=== PATIENT | female | born 1960 | race American Indian/Alaskan Native ===

== ENCOUNTER 2021-08-18 23:13 | Emergency (ER) | payer SELFPAY ==
[2021-08-19] MEDS ORDERED: IPRATROPIUM 0.02% NEBU 2.5 ML IH ONE (01:24)
[2021-08-19] MEDS ORDERED: ALBUTEROL 2.5 MG/3 ML NEBU IH ONE (01:24)
--- NOTE | 2021-08-19 02:03 | XRay Report ---
XR chest 1V ap INDICATION / CLINICAL INFORMATION: Dyspnea. COMPARISON: 08/14/2012 FINDINGS: SUPPORT DEVICES: None. HEART /PULMONARY VASCULATURE: Heart is enlarged. Pulmonary vasculature is congested. LUNGS / PLEURA: Moderate diffuse increased interstitial prominence, may reflect edema. There is no fo hannah airspace consolidation. No sizable pleural effusion. No pneumothorax. ADDITIONAL FINDINGS: No significant additional findings. IMPRESSION: Moderate diffuse increased interstitial markings, may reflect pulmonary edema or pneumonia. Signer Name: Butch Anderson MD Signed: 08/19/2021 1:58 AM Workstation Name: [id number]
[2021-08-19 02:55] LABS: Basophils % (Auto) 0.4 % (0.0-1.8); Eosinophils % (Auto) 0.1 % (0.0-4.3); Hematocrit 41.2 % (30.3-42.9); Hemoglobin 13.4 gm/dl (10.1-14.3); Lymphocytes # (Auto) 0.7 K/mm3 (1.2-5.4); Lymphocytes % (Auto) 10.7 % (13.4-35.0); Mean Corpuscular HGB Conc 33 % (30-34); Mean Corpuscular Volume 89 fl (79-97); Monocytes # (Auto) 0.4 K/mm3 (0.0-0.8); Monocytes % (Auto) 5.8 % (0.0-7.3); Platelet Count 187 K/mm3 (140-440); Red Blood Count 4.65 M/mm3 (3.65-5.03); Red Cell Distribution Width 14.2 % (13.2-15.2)
[2021-08-19 03:07] LABS: Alanine Aminotransferase 25 units/L (7-56); Albumin 3.9 g/dL (3.9-5); BUN/Creatinine Ratio 14; Blood Urea Nitrogen 14 mg/dL (7-17); Calcium 9.4 mg/dL (8.4-10.2); Hemolysis Index 10
[2021-08-19 03:09] LABS: Creatine Kinase MB 7.6 ng/mL (0.0-4.0)
[2021-08-19] MEDS ORDERED: FUROSEMIDE 40 MG/4 ML INJ IV ONE (03:20)
--- NOTE | 2021-08-19 03:59 | Emergency Department Report ---
ED General Adult HPI - General Chief complaint: Dyspnea/Respdistress Stated complaint: DIFF BREATHING Time Seen by Provider: 08/19/21 01:13 Source: EMS Mode of arrival: Stretcher Limitations: No Limitations - History of Present Illness Initial comments: sob and gloria , pt has HTN , no chest pain , no fever -: Gradual, days(s) Location: chest Radiation: non-radiation Improves with: none Worsens with: none Treatments Prior to Arrival: none - Related Data Home Medications Medication Instructions Recorded Confirmed Last Taken Lisinopril/Hydrochlorothiazide 12/23/13 12/23/13 Unknown [Zestoretic 10-12.5 mg] Previous Rx's Medication Instructions Recorded Last Taken Type Prednisone [Prednisone 10 mg 10 mg PO .TAPER #1 tab.ds.pk 12/23/13 Unknown Rx (6-Day Pack, 21 Tabs)] Promethazine Dm (Nf) [Phenergan Dm 5 ml PO Q6H PRN #120 ml 12/23/13 Unknown Rx 6.25/15 mg 5 ml] Sulfamethoxazole/Trimethoprim 1 each PO Q12H #14 tablet 12/23/13 Unknown Rx [Bactrim Ds] Permethrin 5% [Acticin 5% CREAM] 1 applicatio TP ONCE #1 tube 01/06/14 Unknown Rx cephALEXin [Keflex] 500 mg PO Q6H #28 capsule 01/06/14 Unknown Rx hydrOXYzine HCL [Atarax] 25 mg PO Q6HR PRN #30 tablet 01/10/14 Unknown Rx Furosemide [Lasix] 20 mg PO QDAY #30 tablet 08/19/21 Unknown Rx Allergies Allergy/AdvReac Type Severity Reaction Status Date / Time No Known Allergies Allergy Verified 08/18/21 23:20 ED Review of Systems ROS: Stated complaint: DIFF BREATHING Other details as noted in HPI Constitutional: denies: chills, fever Eyes: denies: eye pain, eye discharge, vision change ENT: denies: ear pain, throat pain Respiratory: denies: cough, shortness of breath, wheezing Cardiovascular: denies: chest pain, palpitations Endocrine: no symptoms reported Gastrointestinal: denies: abdominal pain, nausea, diarrhea Genitourinary: denies: urgency, dysuria, discharge Musculoskeletal: denies: back pain, joint swelling, arthralgia Skin: denies: rash, lesions Neurological: denies: headache, weakness, paresthesias Psychiatric: denies: anxiety, depression Hematological/Lymphatic: denies: easy bleeding, easy bruising ED Past Medical Hx - Past Medical History Hx Hypertension: Yes Hx Psychiatric Treatment: Yes (depressed, bipolar) - Surgical History Additional Surgical History: ADRIENNE - Social History Smoking Status: Current Every Day Smoker - Medications Home Medications: Home Medications Medication Instructions Recorded Confirmed Last Taken Type Lisinopril/Hydrochlorothiazide 12/23/13 12/23/13 Unknown History [Zestoretic 10-12.5 mg] Prednisone [Prednisone 10 mg 10 mg PO .TAPER #1 tab.ds.pk 12/23/13 Unknown Rx (6-Day Pack, 21 Tabs)] Promethazine Dm (Nf) [Phenergan Dm 5 ml PO Q6H PRN #120 ml 12/23/13 Unknown Rx 6.25/15 mg 5 ml] Sulfamethoxazole/Trimethoprim 1 each PO Q12H #14 tablet 12/23/13 Unknown Rx [Bactrim Ds] Permethrin 5% [Acticin 5% CREAM] 1 applicatio TP ONCE #1 tube 01/06/14 Unknown Rx cephALEXin [Keflex] 500 mg PO Q6H #28 capsule 01/06/14 Unknown Rx hydrOXYzine HCL [Atarax] 25 mg PO Q6HR PRN #30 tablet 01/10/14 Unknown Rx Furosemide [Lasix] 20 mg PO QDAY #30 tablet 08/19/21 Unknown Rx ED Physical Exam - General Limitations: No Limitations General appearance: alert, in no apparent distress - Head Head exam: Present: atraumatic, normocephalic - Eye Eye exam: Present: normal appearance - ENT ENT exam: Present: mucous membranes moist - Neck Neck exam: Present: normal inspection - Respiratory Respiratory exam: Present: normal lung sounds bilaterally, rales. Absent: respiratory distress - Cardiovascular Cardiovascular Exam: Present: normal rhythm, tachycardia. Absent: systolic murmur, diastolic murmur, rubs, gallop - GI/Abdominal GI/Abdominal exam: Present: soft, normal bowel sounds - Extremities Exam Extremities exam: Present: normal inspection - Back Exam Back exam: Present: normal inspection - Neurological Exam Neurological exam: Present: alert, oriented X3 - Psychiatric Psychiatric exam: Present: normal affect, normal mood - Skin Skin exam: Present: warm, dry, intact, normal color. Absent: rash ED Course Vital Signs 08/18/21 23:16 Temperature 98.1 F Pulse Rate 114 H Respiratory 20 Rate Blood Pressure 199/136 O2 Sat by Pulse 96 Oximetry ED Medical Decision Making - Lab Data Result diagrams: 08/19/21 02:12 08/19/21 02:12 - EKG Data -: EKG Interpreted by Me EKG shows normal: sinus rhythm Rate: normal - EKG Data Interpretation: nonspecific ST-T wave maria, LVH - Radiology Data Radiology results: report reviewed, image reviewed - Medical Decision Making work up shwoed chf , lasix given BP controlled,will start diuretic and refer to card for OP echo Critical care attestation.: If time is entered above; I have spent that time in minutes in the direct care of this critically ill patient, excluding procedure time. ED Disposition Clinical Impression: SOB (shortness of breath), CHF (congestive heart failure) Disposition: 01 HOME / SELF CARE / HOMELESS Is pt being admited?: No Does the pt Need Aspirin: No Condition: Stable Instructions: Shortness of Breath, Adult, [id number], Heart Failure Medicines Referrals: RAFAEL MONTILLA MD [Staff Physician] - 3-5 Days
[2021-08-19 05:57] VITALS: BP 135/80
--- NOTE | 2021-08-19 17:55 | Electrocardiograph Report ---
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
== END 2021-08-19 06:02 | disposition home or self-care (01) ==
LOC: ED 23:13
DX: R06.02 Shortness of breath (principal); I11.9 Hypertensive heart disease without heart failure; I50.9 Heart failure, unspecified; F32.9 Major depressive disorder, single episode, unspecified; Z98.890 Other specified postprocedural states; F17.290 Nicotine dependence, other tobacco product, uncomplicated
CPT/HCPCS: 36415; 71045; 80053; 82550; 82553; 83880; 84484; 85025; 93005; 99284; J1940